=== PATIENT | female | born 1935 | race Caucasian/White ===

== ENCOUNTER 2018-04-24 13:06 | Outpatient (CLI) | payer MEDICARE ==
--- NOTE | 2018-04-24 15:16 | CT ---
CT LUMBAR SPINE WITHOUT CONTRAST: HISTORY: Low back pain. The patient had a stimulator placed 4 months ago. COMPARISON: 09/27/2015. TECHNIQUE: Lumbar spine CT is performed without contrast. Reformatted images are submitted for interpretation. FINDINGS: There are bilateral transpedicular screws at L4, L5, and S1. There is no evidence of perihardware inocencia cency. Lumbar spine vertebral height is maintained. There is no fracture. Dorsal column stimulator enters the central spinal canal at approximately the T12-L1 level. Distal tips are not included on this exam. There is mild rightward curvature of the lumbar spine. Vacuum disk phenomenon at L1-L2, L2-L3, L3-L4 , and L4-L5. There is 4.4 mm of retrolisthesis of L1 upon L2, 3.8 mm of retrolisthesis of L2 upon L3, 5.2 mm of an terolisthesis of L4 upon L5, 11 mm anterolisthesis of L5 upon S1. Laminectomy defect at L3-L4, L4-L5, and the L5-S1 disk space. There appear to be bilateral pars defe cts at L5. Symmetric attenuation of the psoas muscles. Exophytic hypodensity emanating from the left renal lili ex measuring 7 cm compatible with a cyst. Other visualized solid organs are unremarkable. Limited evaluation of the contents of the central spinal canal and neural foramen due to technique. T10-T11, T11-T12, and T12-L1: No significant central canal stenosis of foraminal narrowing. L1-L2: Broad-based disk bulge and ligamentum flavum thickening result in mild central canal stenosis . Moderate to severe right and moderate left neural foraminal narrowing. L2-L3: Broad-based disk bulge, ligamentum flavum thickening, and facet hypertrophy result in moderat e central canal stenosis. Right neural foramen is moderately narrowed. There is severe left foramin al narrowing. L3-L4: Broad-based disk bulge is present. Limited evaluation of the central spinal canal due to adelfo m-attenuation artifact. There appears to be narrowing of the left subarticular zone secondary to dis k material as well as osteophyte formation from the end plate. There is presumed obscuration of the traversing left L4 nerve root. Overall, there is mild central canal stenosis. Moderate to severe bi lateral foraminal narrowing. L4-L5: Posterior laminectomy defect. No high-grade central canal stenosis. Moderate bilateral fora marry narrowing. L5-S1: Posterior laminectomy defect. No high-grade central canal stenosis. Severe bilateral forami nal narrowing. IMPRESSION: 1. Lumbar fusion changes as above. 2. Varying degrees of central canal stenosis and foraminal narrowing as detailed above. 3. Spondylolysis of L5. There is associated grade I anterolisthesis of L5 upon S1. POS: [facility]
== END 2018-04-24 13:07 | disposition home or self-care (01) ==
LOC: SCSCT 13:06
PROVIDERS: ATTEND Anesthesiology Pain Medicine
DX: M96.1 Postlaminectomy syndrome, not elsewhere classified (principal); M48.061 Spinal stenosis, lumbar region without neurogenic claudication; M48.07 Spinal stenosis, lumbosacral region; M47.816 Spondylosis without myelopathy or radiculopathy, lumbar region; M43.16 Spondylolisthesis, lumbar region; Z98.1 Arthrodesis status
CPT/HCPCS: 72131

== ENCOUNTER 2018-09-01 11:36 | Day surgery (SDC) | payer MEDICARE ==
[2018-08-31 13:38] VITALS: BMI 23.3
[2018-09-01] MEDS ORDERED: Fentanyl 100 MCG/2 ML VIAL ONE ×2 (12:42→14:19)
[2018-09-01] MEDS ORDERED: Ondansetron PF 4 MG/2 ML Vial ONE (14:06)
[2018-09-01] MEDS ORDERED: PROPOFOL 200 MG/20 ML VIAL ONE (14:06)
[2018-09-01] MEDS ORDERED: Lidocaine 1% (PF) 30 ML VIAL ONE (14:45)
[2018-09-01] MEDS ORDERED: Bupivacaine/Epinephrine 0.25% 30 ML VIAL ONE (14:45)
--- NOTE | 2018-09-02 13:14 | OP ---
DATE OF PROCEDURE: 09/01/2018 PREOPERATIVE DIAGNOSES: 1. Lumbar stenosis. 2. Chronic radiculopathy. 3. Chronic pain. 4. Failure of spinal cord stimulator. POSTOPERATIVE DIAGNOSES: 1. Lumbar stenosis. 2. Chronic radiculopathy. 3. Chronic pain. 4. Failure of spinal cord stimulator. PROCEDURES PERFORMED: 1. Removal of spinal cord stimulation electrode array on the right side. 2. Removal of spinal cord stimulation electrode array on the left side. 3. Removal of internal pulse generator. ANESTHESIA: TIVA. COMPLICATIONS: None. ESTIMATED BLOOD LOSS: Less than 10 mL. SUMMARY: Risks and benefits were discussed. Informed consent was obtained and the patient was taken to the OR, prepped and draped in standard fashion using ChloraPrep, let to dry. 1% lidocaine mixed with 0.25% Marcaine with epinephrine 50:50 was used for skin and subcutaneous anesthesia. The posterior incision was chosen first, incision and blunt dissection were made down, exposing the lead anchors easily. They were dissected out. Each lead suture anchor was identified, ligated, and removed. The right anchor was then removed along with the right lead. This was repeated for the left electrode array, each was sutures with two 2-0 silk sutures. They were ligated and removed and the left electrode array was removed. Attention was then turned to the IPG in the right buttock. Incision was made over blunt dissection to expose the internal pulse generator. It was easily removed from the pocket and the leads were removed from the tunnel completing the explant of both electrodes arrays, both lead anchors, retaining sutures, and the internal pulse generator. All counts were correct x2. Closure was accomplished at both incisions in layers with interrupted 2-0 Vicryl and the skin was closed with a running subcuticular 4-0 Rapide at each incision. Dermabond was used to seal the skin. Dermabond was let dry, 4 x 4 dressings were placed along with Medipore tape. No complications. Tolerated the procedure well. Job ID: [id number] [facility]
== END 2018-09-01 16:35 | disposition home or self-care (01) ==
LOC: SDC 11:36
PROVIDERS: ATTEND Specialist
PROC: 00PU3MZ Removal of Neurostimulator Lead from Spinal Canal, Percutaneous Approach (ICD-10-PCS; principal; 2018-09-01)
PROC: 0JPT0MZ Removal of Stimulator Generator from Trunk Subcutaneous Tissue and Fascia, Open Approach (ICD-10-PCS; 2018-09-01)
DX: T85.192A Other mechanical complication of implanted electronic neurostimulator of spinal cord electrode (lead), initial encounter (principal); M48.061 Spinal stenosis, lumbar region without neurogenic claudication; G89.29 Other chronic pain; M54.16 Radiculopathy, lumbar region; I10 Essential (primary) hypertension; Z88.2 Allergy status to sulfonamides; Z88.5 Allergy status to narcotic agent; Z88.8 Allergy status to other drugs, medicaments and biological substances; Z79.899 Other long term (current) drug therapy
CPT/HCPCS: 76000; J2001; J2405; J2704; J3010

== ENCOUNTER 2018-11-10 14:08 | Outpatient (CLI) | payer MEDICARE ==
--- NOTE | 2018-11-10 14:47 | RAD ---
MRI clearance study: Abdomen one view Chest 1 view: DATE: 11/10/2018 HISTORY: 83-year-old male scheduled for MRI of lumbar spine with history of spinal cord stimulator removal. Th is is for MRI clearance to rule out the possibility of retained leads or lead fragments. FINDINGS: There is no generator or electrical leads for spinal cord stimulator. Severe joint space narrowing of the superior aspect of right hip with severe sclerosis and large subchondral cyst formation. Bilateral pedicle screws and laminectomy defect at lower lumbar spine and lumbosacral junction. Promi nent scoliosis of lumbar spine with associated severe degenerative disc disease. Chronic left lateral subluxations of L1 on L2 and L2 on L3. Visualized lung caldwell are clear. No cardiomegaly or p ulmonary edema. No pneumothorax. IMPRESSION: 1. The patient is cleared for MRI. 2. Severe lumbar spondylosis, with scoliosis, laminectomy, and posterior fusion hardware. 3. Extremely severe osteoarthrosis of the right hip, incompletely imaged.
--- NOTE | 2018-11-10 16:36 | MRI ---
MRI OF THE LUMBAR SPINE WITH AND WITHOUT CONTRAST: 11/10/18 HISTORY: Lumbar stenosis with neurogenic claudication. Previous lumbar surgery, x2. Multiple falls. Right leg and low back pain. COMPARISON: None. TECHNIQUE: MRI of the lumbar spine is performed with and without intravenous gadolinium administration. Multiseq uential, multiplanar imaging is performed. FINDINGS: There are bilateral transpedicular screws at L4, L5 and S1. Associated metallic susceptibility artifa ct. There is Ts1 marrow signal hypointensity with associated T2 and STIR hyperintensity on the superi or end plate of L4 likely due to degenerative change. 5 mm of retrolisthesis of L2 upon L3, 4 mm of r etrolisthesis of L3 upon L4, 7.8 mm of anterolisthesis of L5 upon S1. Appropriate signal intensity in the paraspinal muscles. Large T2 hyperintense lesion in the left kidney is presumed to be a cyst. T11-T12: Left and right paracentral disc bulges, ligamentum flavum thickening and facet hypertrophy r esult in mild central canal stenosis. Neural foramina are patent bilaterally. T12-L1: Small left and right paracentral disc bulges, along with ligamentum flavum thickening and fac et hypertrophy resulting in mild central canal stenosis. Mild bilateral foraminal narrowing. L1-L2: Severe loss of disc space height. Generalized disc bulge, ligamentum flavum thickening and fac et hypertrophy result in mild central canal stenosis. Narrowing of the right subarticular zone with m ass effect and obscuration of the traversing right L2 nerve root. Moderate right and left neural fora marry narrowing. L2-L3: Desiccation with severe loss of disc space height. There is a left subarticular disc osteophyt e complex. There is a left laminectomy defect. Mild enhancing scar tissue at the operative site. Over all, there is mild central canal stenosis. There is moderate right and severe left neural foraminal n arrowing. L3-L4: Desiccation with severe loss of disc space height. There appears to be narrowing of the left s ubarticular zone secondary to disc material. At least mild central canal stenosis. Moderate right and moderate to severe left foraminal narrowing. L4-L5: Moderate loss of disc space height. Left laminectomy defect is noted. No evidence of high grad e central canal stenosis. Moderate to severe right and moderate left foraminal narrowing. L5-S1: Posterior laminectomy defect. There is a T2 hyperintense lesion with peripheral enhancement m easuring 1.7 cm craniocaudal x 3.1 cm mediolateral x 1 cm anterior posterior. Postoperative fluid col lection is favored. An infected fluid collection cannot be excluded. Postcontrast images do not demonstrate any abnormal enhancement within the thecal sac including the c auda equina and conus medullaris. IMPRESSION: 1. Extensive lumbar fusion as described above. There is a peripherally enhancing cystic lesion a t the operative site, which is presumed to be due to postoperative change versus infected fluid colle ction. Correlate clinically. 2. Varying degrees of central canal stenosis and neural foraminal narrowing as detailed above. Code T POS: OFF
== END 2018-11-10 14:09 | disposition home or self-care (01) ==
LOC: TBSIIMAG 14:08
PROVIDERS: ATTEND Anesthesiology Pain Medicine
DX: M48.062 Spinal stenosis, lumbar region with neurogenic claudication (principal); M47.816 Spondylosis without myelopathy or radiculopathy, lumbar region; M16.11 Unilateral primary osteoarthritis, right hip; Z98.1 Arthrodesis status
CPT/HCPCS: 72158; 74018; 82565

== ENCOUNTER 2019-01-22 13:46 | Outpatient (CLI) | payer MEDICARE ==
--- NOTE | 2019-01-22 15:44 | CT ---
CT ABDOMEN AND PELVIS WITH IV CONTRAST: 01/22/19 Oral contrast was also given. Multiplanar reconstruction. INDICATION: Abdominal pain. There are no comparison CT abdomen and pelvis exams. Comparison is made to a prior CT chest from 2014 . Images through the lung bases reveal interstitial thickening and numerous small pulmonary nodules. A larger nodule in the left lung base measuring up to 8 to 9 mm is again seen. These nodular opacities appear stable. Liver, spleen, and pancreas appear unremarkable. The gallbladder is mildly distended. No pericholecystic edema seen. Gallstones may not be apparent on CT. The adrenal glands are unremarkable. There is a large left renal cyst which was imaged on the prior chest CT and does appear stable. This cyst measures up to 7 cm. There is another complex low density probable cystic lesion which is exophytic from the posterior mid left kidney measuring 1.2 cm. This lesion exhibits peripheral calcification and possibly peripheral enhancement. This lesion was also imaged on the prior exam and appears stable. Tiny low densities subcentimeter cystic lesions in the right kidney appear stable. No hydronephrosis or urinary calculus. Urinary bladder mildly distended and unremarkable. Aorta normal caliber. Small bowel loops appear normal. Appendix is not identified. Stool throughout the colon. Degenerative and postoperative changes in the lumbar spine. IMPRESSION: 1. No acute process. Renal cystic lesions appear stable. A complex exophytic lesion from the pos terior mid left kidney appears stable from the prior exam of 2014. 2. Numerous nodules in the lung bases with interstitial thickening appears stable. POS: [facility]
== END 2019-01-22 13:47 | disposition home or self-care (01) ==
LOC: SCSCT 13:46
PROVIDERS: ATTEND Internal Medicine
DX: R10.84 Generalized abdominal pain (principal); Q61.9 Cystic kidney disease, unspecified
CPT/HCPCS: 74177; 82565

== ENCOUNTER 2019-05-16 17:52 | Observation (INO) | payer MEDICARE ==
[~2019-05-16 17:52] MED LIST: Iopamidol-370 76% 500 ML 1 ML ONE
--- NOTE | 2019-05-16 21:05 | CT ---
CT ANGIO CHEST PERFORMED WITH IV CONTRAST ENHANCEMENT WITH 3D RECONSTRUCTIONS: Date: 05/16/2019 HISTORY: Chest pain. Elevated D-Dimer. Shortness of breath. COMPARISON: CT abdomen and pelvis performed 01/22/19. FINDINGS: There are numerous small bilateral pulmonary nodules noted. The larger nodules are within the left lo wer lobe where nodules in the 8-9 mm range are seen. In comparing to the previous CT of the abdomen, these lower lobe pulmonary nodules appear stable. On that exam, it is described as the pulmonary nodu les being stable as compared to a 2015 exam, which I do not have for comparison. There is no significant mediastinal, hilar, or axillary lymphadenopathy. The thoracic aorta is normal in caliber. There is good pulmonary artery opacification and no CT evide nce for pulmonary embolus. Visualized liver parenchyma shows no findings. A left renal cyst is partially visualized. IMPRESSION: 1. No CT evidence of pulmonary embolus. 2. Numerous pulmonary nodules. The etiology of these are unclear. These are not calcified. Metastati c disease is not excluded. The nodules in the lung bases are stable as compared to the 01/22/19 study . POS: [facility]
[2019-05-16 22:41] LABS: Troponin I 0.013 ng/mL (< 0.028)
[2019-05-16 22:48] VITALS: BMI 21.7
[2019-05-17] MEDS ORDERED: ALPRAZolam 1 MG TAB PO SCH ×3 (01:00→21:00)
[2019-05-17] MEDS ORDERED: Metoprolol Tartrate 50 MG TAB PO SCH ×2 (01:00→09:00)
[2019-05-17 01:34] LABS: Troponin I Less than 0.010 ng/mL (< 0.028)
[2019-05-17] MEDS: HYDROcodone/Acetaminophen 7.5/325 mg Tablet PO PRN ×2 (09:04→17:44)
[2019-05-17] MEDS: Metoprolol Tartrate 50 MG TAB PO SCH ×2 (09:04→20:26)
[2019-05-17] MEDS: Promethazine 25 MG TAB PO PRN (15:42)
--- NOTE | 2019-05-17 22:09 | HP ---
CHIEF COMPLAINT: Abdominal pain. HISTORY OF PRESENT ILLNESS: Patient is an 83-year-old female who stated that when her dog jumped to her lap, she started having this burning sensation starting from her abdomen going up to her neck and she was little nauseated, so she came into the hospital for further evaluation. The patient states that whenever her dog jumps in her lap, these symptoms occur and she thought that she is "allergic to the dog." Patient's dog weighs about 4 pounds. Patient recently had an EGD last month, which did not show any acute abnormalities. The pathology specimen only indicated patient has mild active esophagitis with some reflux. No Parker's was noted. Patient states that she has had lower abdominal pain. She has had colonoscopies and continues to have the abdominal pain without any active diagnosis. PAST MEDICAL HISTORY: As of the following: She has a history of hyperlipidemia, hypercholesterolemia, hypertension, hypothyroidism, and chronic pain. SURGICAL HISTORY: She has had a hysterectomy and right shoulder surgery. PSYCHIATRIC HISTORY: Includes anxiety. SOCIAL HISTORY: She denies any alcohol use, drug use, or smoking history. She is a full code. Lives with her family. ALLERGIES: SHE IS ALLERGIC TO CIPROFLOXACIN, NAUSEA; CODEINE, NAUSEA; MORPHINE, RASH; SULFA, NAUSEA; AND ZOLPIDEM. MEDICATIONS: She is on: 1. Celexa 20 mg daily. 2. Levothyroxine 112 mcg daily. 3. Alprazolam 1 mg p.o. daily. 4. Metoprolol 50 mg b.i.d. PHYSICAL EXAMINATION: VITAL SIGNS: Temperature of 98.8, , 16, pulse is 63, and blood pressure is 120/60. GENERAL: She is awake, alert, and oriented x3. Does not appear in distress. HEENT: Normocephalic and atraumatic. No lymphadenopathy noted. Pupils equal and reactive to light. CV: S1 and S2 present. No murmurs, rubs, or gallops. LUNGS: Clear to auscultation. No rhonchi or wheezes noted. ABDOMEN: Soft. Bowel sounds present x2. Mild pain upon palpation to bilateral lower abdominal area. EXTREMITIES: No edema noted. Pedal pulses are present x2. NEUROVASCULAR: There are no focal deficits noted. SKIN: No cuts, lesions, or bruises noted. LABORATORY: Her troponin x3 were negative. EKG, no acute changes. WBCs of 4.5, hemoglobin of 11.1, hematocrit of 35.1, and platelets of 184. Her D-dimer was elevated at 1.1. Her BNP was 240. Sodium of 135, potassium of 4.1, BUN of 20, creatinine 0.86, and AST of . ASSESSMENT/PLAN: Patient is a very pleasant 83-year-old female who presents to the hospital with complaints of atypical chest pain. 1. Atypical chest pain. Patient did have a CTA which indicated multiple pulmonary nodules. She is aware of this. She states that she is supposed to follow up with a CAT scan as an outpatient. No embolism was noted. She has no cardiac history. Her troponins x3 were negative. We will continue her home medications. We will also go ahead and order a stress test given her risk factors and her age. If the stress test is negative, I will discharge her. I will also get a right upper quadrant ultrasound to rule out any other etiology, however, she was seen in the hospital in January of 2019, she did have a CT of abdomen and pelvis, which indicated just numerous nodules to the lungs and also a renal cyst that was stable and a complex exophytic lesion from the posterior mid left kidney, which appears to be stable from exam of 2014. Patient is aware of this. 2. History of anxiety. We will continue her home medications. 3. Hypertension. We will continue her home medications. 4. Deep venous thrombosis prophylaxis. We will put the patient on SCDs. Job ID: [id number]
[2019-05-18] MEDS: Promethazine 25 MG TAB PO PRN (05:17)
[2019-05-18] MEDS ORDERED: Levothyroxine Sodium 50 MCG TAB PO SCH (06:00)
--- NOTE | 2019-05-18 07:41 | ULT ---
Sonogram right upper quadrant HISTORY: Right upper quadrant pain. FINDINGS: Gallbladder shows no focal abnormalities. Common duct is 0.3 cm. Liver within normal limits . No free fluid. Incidental note of a small cyst of the right kidney. IMPRESSION: No evidence of gallstones or acute biliary obstruction.
[2019-05-18] MEDS: HYDROcodone/Acetaminophen 7.5/325 mg Tablet PO PRN (08:13)
[2019-05-18] MEDS: Metoprolol Tartrate 50 MG TAB PO SCH (08:14)
[2019-05-18 08:15] VITALS: TEMP 97.8
--- NOTE | 2019-05-18 09:07 | NM ---
NM Card Spec Sgl sty st or rst History: Chest pain Comparison: None. Findings: Rest only images were obtained. The patient refused stress component of the exam. Only nonattenuation corrected rest images were obtained. Impression: Nondiagnostic examination as patient refused the stress component of the exam and only no nattenuation corrected images were obtained.
[2019-05-18 09:44] VITALS: BP 158/67
--- NOTE | 2019-05-20 08:31 | DIS ---
DATE OF ADMISSION: 05/16/2019 DATE OF DISCHARGE: 05/18/2019 DISCHARGE DIAGNOSES: 1. Atypical chest pain. 2. Anxiety. 3. Hypertension. 4. Pulmonary nodules. HOSPITAL COURSE: The patient is a very pleasant 83-year-old female who initially presented to the hospital for having a burning like sensation starting from her abdomen going up to her neck area. She stated that whenever her dog jumps on her lap, she gets that sensation. The patient recently had an EGD last month and did not show any acute abnormalities. The patient at this time did undergo a stress test, however, she only did the first part of the stress test and she refused to do the second part of the stress test. The patient did have a CTA to rule out a PE. The PE was ruled out. She did have numerous pulmonary nodules, which she is aware of, which she is supposed to get further testing for this. I did talk extensively with the patient. Also got a right upper quadrant ultrasound, which did not indicate any gallstones or any biliary obstruction. The patient stated that she felt better. She has been through a lot of issues especially with her family and has been having a lot of anxiety. I will discharge the patient home. She will follow up with her primary and also she is aware of her pulmonary nodules and she is going to get a workup as an outpatient. HOME MEDICATIONS: 1. Levothyroxine 50 mcg daily. 2. Metoprolol 1 p.o. daily. 3. Pantoprazole 40 mg twice a day. 4. Alprazolam 2 mg daily. 5. Duloxetine 20 mg p.o. daily. PHYSICAL EXAMINATION: VITAL SIGNS: Temperature 97.8, pulse 63, respirations 15, 97% on room air, blood pressure 158/67. GENERAL: She is awake, alert, and oriented x3. Does not appear in any distress. CV: S1 and S2 present. No murmurs, rubs, or gallops. ABDOMEN: Soft and nontender. Bowel sounds are present x2. DISCHARGE INSTRUCTIONS: Again, she will be discharged home. She will follow up with her primary. Job ID: [id number]
== END 2019-05-18 14:36 | disposition home or self-care (01) ==
LOC: ERS 17:52 → 2SW 20:22
PROVIDERS: ADMIT Family Medicine; ATTEND Family Medicine
DX: R07.89 Other chest pain (principal); I10 Essential (primary) hypertension; F41.9 Anxiety disorder, unspecified; R91.1 Solitary pulmonary nodule; E03.9 Hypothyroidism, unspecified; E78.00 Pure hypercholesterolemia, unspecified; E78.5 Hyperlipidemia, unspecified; Z79.899 Other long term (current) drug therapy; Z88.1 Allergy status to other antibiotic agents; Z88.5 Allergy status to narcotic agent; Z88.2 Allergy status to sulfonamides; Z88.8 Allergy status to other drugs, medicaments and biological substances
CPT/HCPCS: 71275; 76705; 78451; 84484 ×2; 93005; 99285; A9500; G0378 ×4; 36415; Q0169; Q9967

== ENCOUNTER 2019-07-31 00:35 | Emergency (ER) | payer MEDICARE ==
[2019-07-31] MEDS ORDERED: Ondansetron PF 4 MG/2 ML Vial ONE (01:01)
[2019-07-31] MEDS ORDERED: HYDROcodone/Acetaminophen 7.5/325 mg Tablet ONE (01:47)
--- NOTE | 2019-07-31 07:55 | CT ---
PRELIMINARY REPORT/[facility]/EMERGENCY AFTER HOURS PROCEDURE: EXAM: CT Head Without Intravenous Contrast. CLINICAL HISTORY: ER 2... 83F brought in via EMS c/o sacral & occipital pain s/p mechanical fall at a ssisted living facility. TECHNIQUE: Axial computed tomography images of the head/brain without intravenous contrast. COMPARISON: CT - CT CERVICAL SPINE WO CON - 07/31/2019 01:18 AM CDT FINDINGS: BRAIN: Mild cerebral volume loss and ex vacuo dilatation of the ventricles. Few scattered periventric ular and subcortical white matter hypodensities. VENTRICLES: No hydrocephalus. ORBITS: The orbits are unremarkable. SINUSES AND MASTOIDS: The paranasal sinuses and mastoid air cells are clear. SOFT TISSUES: No significant facial or scalp soft tissue swelling evident. No radiopaque foreign body is seen. BONES: No acute skull fracture. IMPRESSION: 1. No acute intracranial abnormality. 2. Few scattered periventricular and subcortical white matter hypodensities. These are nonspecific b ut can be seen with chronic white matter microvascular ischemic changes. ELECTRONICALLY SIGNED BY: Bobby Martinez DO Jul 31, 2019 1:30:30 AM CDT FINAL REPORT HEAD CT WITHOUT CONTRAST: HISTORY: Mechanical fall. Pain. COMPARISON: 07/14/2016. FINDINGS: Hemorrhage: No intraparenchymal hemorrhage or extra-axial hematoma. Brain parenchyma: Cortical lyles-white matter differentiation is preserved. No mass effect or midline shift. Basilar cisterns are patent. Ventricular system: Ventricles and sulci are patent and symmetric. Calvarium: Intact. Sinuses and mastoid air cells: Adequate aeration. IMPRESSION: 1. This report is in agreement with the preliminary report by [facility]. 2. No intracranial posttraumatic sequelae. Transcribed Date/Time: 07/31/2019 8:08 AM
--- NOTE | 2019-07-31 07:58 | CT ---
PRELIMINARY REPORT/[facility]/EMERGENCY AFTER HOURS PROCEDURE: EXAM: CT Cervical Spine Without Intravenous Contrast. CLINICAL HISTORY: ER 2... 83F brought in via EMS c/o sacral & occipital pain s/p mechanical fall at a ssisted living facility. TECHNIQUE: Axial computed tomography images of the cervical spine without intravenous contrast. Sagit monika and coronal reformations performed. COMPARISON: CT - CT BRAIN WO CON - 07/31/2019 01:18 AM CDT FINDINGS: BONES: No acute fracture or focal osseous lesion. Bony alignment is anatomic. DISCS / DEGENERATIVE CHANGES: Moderate to severe multilevel cervical spondylosis. SOFT TISSUES: Scattered nodules in the lung apices, largest measuring 4 mm on the right lung apex. MISCELLANEOUS: Mild smooth interlobular septal thickening and centrilobular groundglass. IMPRESSION: 1. No acute abnormality. 2. Moderate to severe multilevel cervical spondylosis. 3. Scattered nodules in the lung apices, largest measuring 4 mm on the right lung apex. If patient i s at high risk for pulmonary malignancy, consider follow-up CT chest in one year. 4. Mild smooth interlobular septal thickening and centrilobular groundglass. This can be seen with m ild pulmonary edema. ELECTRONICALLY SIGNED BY: Bobby Martinez DO Jul 31, 2019 1:33:26 AM CDT FINAL REPORT CT CERVICAL SPINE WITHOUT CONTRAST: HISTORY: Trauma. Pain. COMPARISON: None FINDINGS: No craniocervical dissociation. Appropriate alignment of the lateral masses of C1 and C2. Intact odon toid process. Appropriate alignment of the facets. Slight reversal cervical lordosis centered at the C5-C6 level. Soft tissue neck structures: No mass, lymphadenopathy or hematoma. No prevertebral soft tissue swelli ng. Upper mediastinum and lung apices: Groundglass opacities with septal thickening. Well-circumscribed s olid nodule in the right lung apex measuring 0.4 cm. Central spinal canal: Severe degenerative disc disease at C5-C6 and C6-C7. There are varying degrees of central canal stenosis and neural foraminal narrowing on the basis of degenerative change. Vertebral bodies: Cervical spine vertebral body height is maintained. No fracture. IMPRESSION: 1. This report is in agreement with the initial report by [facility]. No cervical spine fractur e. 2. Solid nodule in the right lung apex. Code lung nodule Transcribed Date/Time: 07/31/2019 8:04 AM
--- NOTE | 2019-07-31 08:10 | RAD ---
THREE VIEWS SACRUM AND COCCYX: HISTORY: Pain. Fall. FINDINGS: Uncomplicated bilateral transpedicular screws at L4, L5 and S1. No perihardware lucency. There appear s to be grade 1 anterolisthesis of L5 upon S1. Visualized sacral alar preserved. Visualized bony pelvis appears to be intact. There is severe degenerative change in the right hip joint space with lo ss of joint space height, sclerosis and subchondral cyst formation. IMPRESSION: 1. Uncomplicated fusion changes in the distal lumbar spine and lumbosacral junction. 2. No evidence of a lumbar spine fracture. 3. Severe degenerative changes in the right hip. Transcribed Date/Time: 07/31/2019 8:13 AM
== END 2019-07-31 02:29 | disposition home or self-care (01) ==
LOC: ERS 00:35
DX: S00.03XA Contusion of scalp, initial encounter (principal); S30.0XXA Contusion of lower back and pelvis, initial encounter; R11.0 Nausea; E78.5 Hyperlipidemia, unspecified; E78.00 Pure hypercholesterolemia, unspecified; I10 Essential (primary) hypertension; E03.9 Hypothyroidism, unspecified; F41.9 Anxiety disorder, unspecified; Z79.899 Other long term (current) drug therapy; W01.10XA Fall on same level from slipping, tripping and stumbling with subsequent striking against unspecified object, initial encounter; Y92.099 Unspecified place in other non-institutional residence as the place of occurrence of the external cause
CPT/HCPCS: 70450; 72125; 72220; 96374; J2405

== ENCOUNTER 2019-10-01 07:19 | Outpatient (CLI) | payer MEDICARE, OTHER ==
[2019-10-01 12:58] LABS: #Basophils 0.1 thou/uL (0.0-0.2); #Eosinphils 0.2 thou/uL (0.0-0.7); #Lymphocytes 1.4 thou/uL (1.20-3.40); #Monocytes 0.5 thou/uL (0.11-0.59); #Neutrophils 2.6 thou/uL (1.40-6.50); %Basophils 1.1 % (0.0-1.0); %Eosinophils 4.8 % (0.0-10.0); %Lymphocytes 28.5 % (21.0-51.0); %Monocytes 11.1 % (0.0-10.0); %Neutrophils 54.5 % (42.0-75.0); Hemoglobin 11.4 g/dL (12.0-16.0); Mean Corpuscular HGB CONC 32.3 g/dL (32.0-36.0); Mean Corpuscular Hemoglobin 30.7 pg (27.0-31.0); Mean Platelet Volume 7.7 fL (7.4-10.4); Platelet Count 187 thou/uL (130-400); RBC Distribution Width 12.9 % (11.5-14.5); Red Blood Cell (RBC) Count 3.72 mill/uL (4.20-5.40); White Blood Cell (WBC) Count 4.8 thou/uL (4.8-10.8)
[2019-10-01 13:22] LABS: ALT (SGPT) 11 U/L (8-55); AST (SGOT) 32 U/L (5-34); Albumin 3.7 g/dL (3.4-4.8); Alkaline Phosphatase 61 U/L (40-110); Anion Gap 10 mmol/L (10-20); BUN (Urea Nitrogen) 20 mg/dL (9.8-20.1); Bilirubin, Total 0.4 mg/dL (0.2-1.2); Calc. Creatinine Clearance 0 mL/min (70-130); Calcium 9.6 mg/dL (7.8-10.44); Carbon Dioxide 27 mmol/L (23-31); Chloride 102 mmol/L (98-107); Estimated GFR-MDRD 66; Globulin 3.7 g/dL (2.4-3.5); Glucose 80 mg/dL (83-110); Potassium 3.8 mmol/L (3.5-5.1); Protein, Total 7.4 g/dL (6.0-8.3); Sodium 135 mmol/L (136-145)
--- NOTE | 2019-10-08 23:26 | EKG ---
Test Reason : Blood Pressure : / mmHG Vent. Rate : 054 BPM Atrial Rate : 054 BPM P-R Int : 174 ms QRS Dur : 092 ms QT Int : 464 ms P-R-T Axes : 008 -44 019 degrees QTc Int : 440 ms Sinus bradycardia Left axis deviation Incomplete right bundle branch block Abnormal ECG When compared with ECG of 16-MAY-2019 20:18, No significant change was found Confirmed by Alana PEMBERTON ([id number]) on 10/08/2019 11:25:50 PM Referred By: WILMA Confirmed By:Alana PEMBERTON
== END 2019-10-01 07:20 | disposition home or self-care (01) ==
LOC: LABBT 07:19
PROVIDERS: ATTEND Surgery
DX: Z01.818 Encounter for other preprocedural examination (principal); K40.90 Unilateral inguinal hernia, without obstruction or gangrene, not specified as recurrent
CPT/HCPCS: 80053; 85025; 93005; 93010

== ENCOUNTER 2020-02-28 13:03 | Emergency (ER) | payer MEDICARE ==
[2020-02-28 14:25] LABS: #Basophils 0.1 thou/uL (0.0-0.2); #Eosinphils 0.1 thou/uL (0.0-0.7); #Lymphocytes 0.7 thou/uL (1.20-3.40); #Monocytes 0.6 thou/uL (0.11-0.59); #Neutrophils 3.5 thou/uL (1.40-6.50); %Eosinophils 2.6 % (0.0-10.0); %Lymphocytes 14.6 % (21.0-51.0); %Monocytes 12.3 % (0.0-10.0); %Neutrophils 69.4 % (42.0-75.0); Hemoglobin 11.2 g/dL (12.0-16.0); Mean Corpuscular HGB CONC 32.3 g/dL (32.0-36.0); Mean Corpuscular Hemoglobin 29.5 pg (27.0-31.0); Mean Corpuscular Volume 91.4 fL (78.0-98.0); Mean Platelet Volume 7.3 fL (7.4-10.4); Platelet Count 218 thou/uL (130-400); RBC Distribution Width 13.2 % (11.5-14.5)
--- NOTE | 2020-02-28 14:30 | RAD ---
EXAM: Single view of the chest HISTORY: Dizziness COMPARISON: None FINDINGS: Single view of the chest shows a normal sized cardiomediastinal silhouette. There are calc ified left hilar lymph nodes. Calcified granulomas project over the left chest. There is no evidence of consolidation or pleural effusion. Hardware is seen in the lumbar spine. Degenerative kinjal nges are seen in the thoracic spine. IMPRESSION: No evidence of acute cardiopulmonary disease
[2020-02-28 14:41] LABS: ALT (SGPT) 9 U/L (8-55); AST (SGOT) 21 U/L (5-34); Albumin 3.9 g/dL (3.4-4.8); Alkaline Phosphatase 77 U/L (40-110); Anion Gap 10 mmol/L (10-20); BUN (Urea Nitrogen) 18 mg/dL (9.8-20.1); Bilirubin, Total 0.4 mg/dL (0.2-1.2); CK (CPK) 274 U/L (29-168); Calc. Creatinine Clearance 0 mL/min (70-130); Calcium 10.1 mg/dL (7.8-10.44); Carbon Dioxide 28 mmol/L (23-31); Chloride 102 mmol/L (98-107); Estimated GFR-MDRD 61; Globulin 3.3 g/dL (2.4-3.5); Glucose 99 mg/dL (83-110); Potassium 4.4 mmol/L (3.5-5.1); Protein, Total 7.2 g/dL (6.0-8.3); Sodium 136 mmol/L (136-145)
--- NOTE | 2020-02-28 14:51 | CT ---
Exam: Head CT without contrast HISTORY: Confusion. Hypertension. COMPARISON: 07/31/2019 FINDINGS: Hemorrhage: No intraparenchymal hemorrhage or extra-axial hematoma. Brain parenchyma: Cortical lyles-white matter differentiation is preserved. No mass effect or midline shift. Basilar cisterns are patent. Ventricular system: Ventricles and sulci are patent and symmetric. Calvarium: Intact. 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 IMPRESSION: No acute intracranial process.
[2020-02-28 15:58] LABS: Bilirubin Negative (Negative); Blood, Urine Negative (Negative); Clarity Clear (Clear); Glucose, Urine (Dipstick) Normal (Negative); Ketone, Urine Negative (Negative); Leukocyte 500 Leu/uL (Negative); Nitrite Negative (Negative); Protein, Urine (Dipstick) Negative (Neg-Trace); RBC/HPF None Seen HPF (0-3); Specific Gravity, Urine 1.011 (1.002-1.036); Squamous Epithelial 0-3 HPF (0-3); Urobilinogen Normal mg/dL (Less than 2); pH, Urine 6.5 (5.0-9.0)
[2020-02-28 15:59] LABS: Bacteria/HPF Rare-Few HPF (None Seen)
== END 2020-02-28 16:25 ==
LOC: ERS 13:03
DX: R42 Dizziness and giddiness (principal); I10 Essential (primary) hypertension; E03.9 Hypothyroidism, unspecified; F41.9 Anxiety disorder, unspecified; E78.5 Hyperlipidemia, unspecified
CPT/HCPCS: 36415; 70450; 71045; 80053; 81003; 81015; 82550; 84484; 85025; 93005

== ENCOUNTER 2020-04-26 07:48 | Inpatient (IN) | payer MEDICARE ==
[2020-04-26 08:10] LABS: #Basophils 0.1 thou/uL (0.0-0.2); #Eosinphils 0.3 thou/uL (0.0-0.7); #Lymphocytes 1.2 thou/uL (1.20-3.40); #Monocytes 0.5 thou/uL (0.11-0.59); #Neutrophils 3.3 thou/uL (1.40-6.50); %Eosinophils 5.5 % (0.0-10.0); %Lymphocytes 22.5 % (21.0-51.0); %Monocytes 9.5 % (0.0-10.0); %Neutrophils 61.5 % (42.0-75.0); Hemoglobin 12.3 g/dL (12.0-16.0); Mean Corpuscular HGB CONC 33.8 g/dL (32.0-36.0); Mean Corpuscular Hemoglobin 31.3 pg (27.0-31.0); Mean Corpuscular Volume 92.5 fL (78.0-98.0); Mean Platelet Volume 7.2 fL (7.4-10.4); Platelet Count 208 thou/uL (130-400); RBC Distribution Width 12.4 % (11.5-14.5); Red Blood Cell (RBC) Count 3.92 mill/uL (4.20-5.40); White Blood Cell (WBC) Count 5.4 thou/uL (4.8-10.8)
--- NOTE | 2020-04-26 08:24 | RAD ---
CHEST 1 VIEW: Date: 04/26/2020 HISTORY: Feeling faint. COMPARISON: 02/28/2020. FINDINGS: Atherosclerosis and elongation of aorta. Normal cardiac silhouette. Pulmonary vessels and hilum are n ormal. Chronic changes without mass or consolidation. No pneumothorax or acute osseous abnormalities. IMPRESSION: Atherosclerosis. No acute cardiopulmonary process. POS: [facility]
[2020-04-26] MEDS ORDERED: Ondansetron PF 4 MG/2 ML Vial ONE (08:37)
[2020-04-26 08:43] LABS: ALT (SGPT) 11 U/L (8-55); AST (SGOT) 24 U/L (5-34); Albumin 3.6 g/dL (3.4-4.8); Alkaline Phosphatase 82 U/L (40-110); Anion Gap 13 mmol/L (10-20); BUN (Urea Nitrogen) 20 mg/dL (9.8-20.1); Bilirubin, Total 0.3 mg/dL (0.2-1.2); CK (CPK) 213 U/L (29-168); Calc. Creatinine Clearance 0 mL/min (70-130); Calcium 9.7 mg/dL (7.8-10.44); Carbon Dioxide 24 mmol/L (23-31); Chloride 104 mmol/L (98-107); Globulin 3.3 g/dL (2.4-3.5); Glucose 127 mg/dL (83-110); Lipase 33 U/L (8-78); Potassium 4.1 mmol/L (3.5-5.1); Protein, Total 6.9 g/dL (6.0-8.3); Sodium 137 mmol/L (136-145)
[2020-04-26 09:09] LABS: Bilirubin Negative (Negative); Blood, Urine Negative (Negative); Clarity Clear (Clear); Glucose, Urine (Dipstick) Normal (Negative); Ketone, Urine Negative (Negative); Leukocyte Negative Leu/uL (Negative); Nitrite Negative (Negative); Protein, Urine (Dipstick) Negative (Neg-Trace); Specific Gravity, Urine 1.014 (1.002-1.036); Urobilinogen Normal mg/dL (Less than 2)
[2020-04-26] MEDS ORDERED: Iopamidol 370 76% 100 ML VIAL ONE (09:09)
--- NOTE | 2020-04-26 09:47 | CT ---
CT ABDOMEN AND PELVIS WITH IV CONTRAST 04/26/2020 CLINICAL INFORMATION: Right-sided abdominal pain for several days. Episode of chest pain is well. COMPARISON: 09/10/2019 and 01/22/2019. Technique: Multiple contiguous axial CT images are obtained through the abdomen and pelvis with IV contrast. Cor onal reformatted images are provided. FINDINGS: Lower Chest: The heart is borderline enlarged. Calcified granulomata is present at each lung base. Th ere are multiple tiny subcentimeter pulmonary nodules in the right lower lobe. Approximately 7 mm noncalcified pulmonary nodule seen at the medial aspect left posterolateral costophrenic angle with a stable 8 mm noncalcified pulmonary nodule seen in the left lower lobe with a few adjacent smaller pulmonary nodules also seen. These pulmonary nodules were present on studies on 09/10/2019 and 2018 and also appear to be present on the study in 2014. Vessels: Vascular calcifications are seen in region of the mitral valve annulus and the level of the aortic valve. Vascular calcifications are seen in the aorta as well as involving the iliac arteries. Abdomen: Portal vein:Patent Gallbladder: Within normal limits for CT imaging. Liver: Few hepatic granulomata visualized. Spleen: within normal limits. Pancreas: within normal limits. Adrenals: within normal limits. Kidneys: Few subcentimeter too small to characterize hypodense lesions are again seen in the midporti on right kidney. Large left renal cyst occupying the majority of the superior pole left kidney is again seen measuring 7.5 cm in maximal dimensions. This previously measured 7 cm in maximal dimension s. Again noted is the exophytic low-density lesion measuring 1.2 cm and the posterior aspect midportion left kidney which again exhibits peripheral calcification. This complex lesion was also se en on a prior examination on 11/23/2014 and similar in size to that study. Bowel: Small amount retained fecal material seen throughout the colon. Loops of small bowel are javier l in caliber. Appendix: Not visualized, there are no secondary signs seen to suggest appendicitis. Peritoneum: No ascites or free air; no fluid collection. Mesentery and Retroperitoneum: No enlarged mesenteric or retroperitoneal lymph nodes. Abdominal Wall: There is mild stranding seen within the region of the right inguinal canal. This coul d be related to prior hernia repair. Pelvis: Reproductive Organs: Evidence of hysterectomy. Bladder: within normal limits. Bones: There is severe right hip osteoarthritis with flattening of the humeral head and large subchon dral cystic changes as well as subchondral sclerosis and severe joint space narrowing present. There is also prominent capsular distention involving the right hip. Postoperative changes lower lumbar spine are present. Degenerative change are also seen in the spine with right convex scoliosis lumbar spine. IMPRESSION: 1. No acute findings in the abdomen or pelvis. 2. Severe right hip osteoarthritis with joint effusion/prominent capsular distention right hip. 3. Interval enlargement of a large left renal cyst with overall stable complex peripherally calcified cystic lesion midportion left kidney. 4. Bibasilar pulmonary nodules which were seen on prior studies. 5. Additional findings as described above.
--- NOTE | 2020-04-26 11:33 | PDOC.HHP ---
Hospitalist HPI - History of Present Illness History of Present Illness: ADMISSION DATE: 04/26/2020 TIME OF ASSESSMENT: 1130 PRIMARY CARE PHYSICIAN: Servando CHIEF COMPLAINT: Almost passed out, chest pain HPI: Patient is a 84-year-old female with past medical history significant for hyperlipidemia, hypertension, hypothyroidism, chronic pain. She is currently living at [facility] and still able to perform all of her tasks independently. She states that yesterday she was overall not feeling well and felt really tired. She went to bed last night and was a little nauseated and shaky and felt that her heart was beating really fast. This morning she woke up at 5 AM and stated that she felt her heart rate was going fast again and she was diaphoretic. She states when she went to stand up she almost fainted and fell back onto her bed, no injuries reported. She was able to ambulate to the restroom and back to bed with her walker. Patient states that she took her blood pressure medication at that time to see if it would help her feel better. She did not check her blood pressure or pulse before taking the medication as she was told that her machine is probably inaccurate. Patient did have some in termittent chest pain yesterday also although none reported today. She describes it as midsternal pressure that resolved on its own. After some time this morning she did feel a little better but was still overall feeling weak and faint so she called EMS to bring her to the hospital. Patient has had multiple stressors including family issues and has had 2 friends recently pass away from [facility]. She states she is normally a very social person but the pandemic has restricted her. She does suffer from chronic pain from her right hip that radiates across her stomach and even into her vaginal area. She is scheduled for surgery June 06. ED COURSE: Vital Signs: Blood pressure 181/82, pulse 82, respiratory rate 16, temp 98.2, 90% room air Today in the ER they completed a UA, CT of the abdomen and pelvis with IV contrast, chest x-ray, EKG, lab work. She was administered Zofran 4 mg IV. PAST MEDICAL HISTORY: Hyperlipidemia, hypertension, hypothyroid, chronic pain, anxiety PAST SURGICAL HISTORY: Back surgery x3, hysterectomy, right shoulder surgery SOCIAL HISTORY: Patient lives independently at [facility]. She uses a walker to ambulate. She denies any alcohol, drug, tobacco use. FAMILY HISTORY: Mother had rheumatic fever as a child and passed from an NV at age 46. Strong family history of strokes. ALLERGIES: Ambien, Cipro, codeine, morphine, sulfa CURRENT MEDICATIONS: Metoprolol 50 mg 2 times a day Mason Thyroid 120 mg once a day Simvastatin 10 mg once a day Xanax 2 mg once a day at bedtime Hospitalist ROS - Review of Systems Constitutional: reports: weakness Cardiovascular: reports: chest pain, palpitations, light headedness Gastrointestinal: reports: abdominal pain All other systems reviewed; all pertinent +/- noted in HPI/Subj - Exam General Appearance: NAD, awake alert Eye: PERRL ENT: normocephalic atraumatic Neck: supple Heart: RRR, no murmur, no gallops, no rubs, normal peripheral pulses Respiratory: CTAB, no wheezes, no rales, no ronchi, normal chest expansion Gastrointestinal: soft, non-distended, normal bowel sounds, tender to palpation Extremities: no edema Skin: no rashes Neurological: no focal deficits Psychiatric: A&O x 3 Psychiatric - other findings: Tearful at times during interview Hospitalist Results - Labs Result Diagrams: 04/26/20 07:59 04/26/20 07:59 Lab results: WBC 5.4 thou/uL (4.8-10.8) 04/26/20 07:59 Hgb 12.3 g/dL (12.0-16.0) 04/26/20 07:59 Hct 36.3 % (36.0-47.0) 04/26/20 07:59 MCV 92.5 fL (78.0-98.0) 04/26/20 07:59 Plt Count 208 thou/uL (130-400) 04/26/20 07:59 Neutrophils % 61.5 % (42.0-75.0) 04/26/20 07:59 Sodium 137 mmol/L (136-145) 04/26/20 07:59 Potassium 4.1 mmol/L (3.5-5.1) 04/26/20 07:59 Chloride 104 mmol/L (98-107) 04/26/20 07:59 Carbon Dioxide 24 mmol/L (23-31) 04/26/20 07:59 BUN 20 mg/dL (9.8-20.1) 04/26/20 07:59 Creatinine 0.76 mg/dL (0.6-1.1) 04/26/20 07:59 Glucose 127 mg/dL (83-110) H 04/26/20 07:59 Calcium 9.7 mg/dL (7.8-10.44) 04/26/20 07:59 Total Bilirubin 0.3 mg/dL (0.2-1.2) 04/26/20 07:59 AST 24 U/L (5-34) 04/26/20 07:59 ALT 11 U/L (8-55) 04/26/20 07:59 Alkaline Phosphatase 82 U/L (40-110) 04/26/20 07:59 Creatine Kinase 213 U/L (29-168) H 04/26/20 07:59 Troponin I Less than 0.010 ng/mL (< 0.028) 04/26/20 07:59 Serum Total Protein 6.9 g/dL (6.0-8.3) 04/26/20 07:59 Albumin 3.6 g/dL (3.4-4.8) 04/26/20 07:59 Lipase 33 U/L (8-78) 04/26/20 07:59 Urine Ketones Negative mg/dL (Negative) 04/26/20 08:49 Urine Blood Negative (Negative) 04/26/20 08:49 Urine Nitrite Negative (Negative) 04/26/20 08:49 Ur Leukocyte Esterase Negative Tamar/uL (Negative) 04/26/20 08:49 - EKG Interpretation EKG: Sinus rhythm 98 bpm - Radiology Interpretation CT scan - abdomen Status: image reviewed by me, report reviewed by me Additional Comment: COMPARISON: 09/10/2019 and 01/22/2019. Technique: Multiple contiguous axial CT images are obtained through the abdomen and pelvis with IV contrast. Coronal reformatted images are provided. FINDINGS: Lower Chest: The heart is borderline enlarged. Calcified granulomata is present at each lung base. There are multiple tiny subcentimeter pulmonary nodules in the right lower lobe. Approximately 7 mm noncalcified pulmonary nodule seen at the medial aspect left posterolateral costophrenic angle with a stable 8 mm noncalcified pulmonary nodule seen in the left lower lobe with a few adjacent smaller pulmonary nodules also seen. These pulmonary nodules were present on studies on 09/10/2019 and 2019 and also appear to be present on the study in 2014. Vessels: Vascular calcifications are seen in region of the mitral valve annulus and the level of the aortic valve. Vascular calcifications are seen in the aorta as well as involving the iliac arteries. Abdomen: Portal vein:Patent Gallbladder: Within normal limits for CT imaging. Liver: Few hepatic granulomata visualized. Spleen: within normal limits. Pancreas: within normal limits. Adrenals: within normal limits. Kidneys: Few subcentimeter too small to characterize hypodense lesions are again seen in the midportion right kidney. Large left renal cyst occupying the majority of the superior pole left kidney is again seen measuring 7.5 cm in maximal dimensions. This previously measured 7 cm in maximal dimensions. Again noted is the exophytic low-density lesion measuring 1.2 cm and the posterior aspect midportion left kidney which again exhibits peripheral calcification. This complex lesion was also seen on a prior examination on 11/23/2014 and similar in size to that study. Bowel: Small amount retained fecal material seen throughout the colon. Loops of small bowel are normal in caliber. Appendix: Not visualized, there are no secondary signs seen to suggest appendicitis. Peritoneum: No ascites or free air; no fluid collection. Mesentery and Retroperitoneum: No enlarged mesenteric or retroperitoneal lymph nodes. Abdominal Wall: There is mild stranding seen within the region of the right inguinal canal. This could be related to prior hernia repair. Pelvis: Reproductive Organs: Evidence of hysterectomy. Bladder: within normal limits. Bones: There is severe right hip osteoarthritis with flattening of the humeral head and large subchondral cystic changes as well as subchondral sclerosis and severe joint space narrowing present. There is also prominent capsular distention involving the right hip. Postoperative changes lower lumbar spine are present. Degenerative change are also seen in the spine with right convex scoliosis lumbar spine. IMPRESSION: 1. No acute findings in the abdomen or pelvis. 2. Severe right hip osteoarthritis with joint effusion/prominent capsular distention right hip. 3. Interval enlargement of a large left renal cyst with overall stable complex peripherally calcified cystic lesion midportion left kidney. 4. Bibasilar pulmonary nodules which were seen on prior studies. 5. Additional findings as described above. Chest x-ray Status: image reviewed by me, report reviewed by me Additional Comment: IMPRESSION: Atherosclerosis. No acute cardiopulmonary process. Hospitalist H&P A/P - Plan Plan: Near syncope Echo ordered Continue to monitor on telemetry Obtain orthostatic vitals Chest pain Continue to trend troponins Stress test ordered Hypertension Continue home medications Monitor every 4 hours As needed antihypertensives available Chronic pain As needed analgesics available, will continue which she takes at home CODE STATUS: Full Surrogate decision-maker would be a family friend, [facility] [phone]
[2020-04-26 11:59] LABS: Troponin I Less than 0.010 ng/mL (< 0.028)
[2020-04-26] MEDS ORDERED: HYDROcodone/Acetaminophen 5/325 mg Tablet ONE (13:03)
[2020-04-26] MEDS ORDERED: Aspirin Chewable 81 MG TAB ONE (15:21)
[2020-04-26 17:26] VITALS: BMI 20.9
[2020-04-26 17:53] LABS: Troponin I 0.011 ng/mL (< 0.028)
[2020-04-26] MEDS ORDERED: hydrALAZINE 20 MG/ML VIAL SLOW IVP PRN (18:14)
[2020-04-26 18:21] LABS: SARS-CoV-2 MS2 Positive; SARS-CoV-2 N Gene Negative; SARS-CoV-2 S Gene Negative; SARS-CoV-2 by NAA Not Detected (NotDetected); SARS-CoV-2 orf1ab Negative
[2020-04-26] MEDS: Atorvastatin Calcium 10 MG TAB PO SCH (20:27)
[2020-04-26] MEDS: Metoprolol Tartrate 50 MG TAB PO SCH (20:27)
[2020-04-26] MEDS ORDERED: ALPRAZolam 1 MG TAB PO SCH (22:15)
[2020-04-26] MEDS: HYDROcodone/Acetaminophen 5/325 mg Tablet PO PRN (22:39)
[2020-04-27] MEDS: HYDROcodone/Acetaminophen 5/325 mg Tablet PO PRN ×4 (00:40→18:07)
[2020-04-27] MEDS: Thyroid 30 MG TAB PO SCH (05:36)
[2020-04-27] MEDS ORDERED: Aspirin Chewable 81 MG TAB PO SCH (09:00)
[2020-04-27] MEDS ORDERED: ADENOSINE 60 MG/20 ML VIAL ONE (09:02)
--- NOTE | 2020-04-27 10:06 | PDOC.HOSPP ---
- Subjective Encounter Date: 04/27/20 Encounter Time: 10:04 Subjective: Patient complaining of pain in left hip which she states is chronic. She takes hydrocodone at home and this was given 5 hours ago. She also reports feeling anxious about not eating. She has been fasting for stress test and it has not been done yet this morning. Otherwise she feels well. Has not had any lightheadedness or dizziness. Reports discomfort to left side of posterior chest, no central chest pain or palpitations. Denies any sob. Reports mild lower abdominal discomfort which she states is chronic and radiating from right hip pain (awaiting right hip replacement) but denies any dysuria, hesitancy, urgency or hematuria. Feels she is emptying her bladder fully. - Objective Vital Signs & Weight: Vital Signs (12 hours) Temp Pulse Resp BP Pulse Ox 04/27/20 07:35 97.7 F 70 18 191/79 H 98 04/27/20 05:36 97.9 F 74 16 180/77 H 96 Weight Weight 120 lb I&O: 04/26/20 04/27/20 04/28/20 06:59 06:59 06:59 Intake Total 120 Output Total 700 Balance -580 Result Diagrams: 04/27/20 10:17 04/27/20 10:17 Hospitalist ROS - Review of Systems Constitutional: denies: fever, chills, sweats, weakness, malaise, other Eyes: denies: pain, vision change, conjunctivae inflammation, eyelid inflammation, redness, other ENT: denies: ear pain, ear discharge, nose pain, nose discharge, nose congestion, mouth pain, mouth swelling, throat pain, throat swelling, other Respiratory: denies: cough, dry, shortness of breath, hemoptysis, SOB with excertion, pleuritic pain, sputum, wheezing, other Cardiovascular: denies: chest pain, palpitations, orthopnea, paroxysmal noc. dyspnea, edema, light headedness, other Gastrointestinal: reports: abdominal pain (lower abdomen radiating from right hip per patient). denies: nausea, vomiting, diarrhea, constipation, melena, hematochezia, other Genitourinary: denies: dysuria, frequency, incontinence, hematuria, retention, other Musculoskeletal: reports: other (right hip/lower back pain). denies: neck pain, shoulder pain, arm pain, back pain, hand pain, leg pain, foot pain Skin: denies: rash, lesions, lacy, bruising, other Neurological: denies: weakness, numbness, incoordination, change in speech, confusion, seizures, other - Medication Medications: Active Medications Generic Name Dose Route Start Last Admin Trade Name Freq PRN Reason Stop Dose Admin Hydrocodone Bitart/Acetaminophen 1 tab 04/26/20 12:57 04/27/20 05:43 Hydrocodone/Acetaminophen 5/325 Mg Tablet PO 1 tab Q4H PRN Administration Pain Atorvastatin Calcium 10 mg 04/26/20 21:00 04/26/20 20:27 Atorvastatin Calcium 10 Mg Tab PO 10 mg HS MATTHEW Administration Metoprolol Tartrate 50 mg 04/26/20 21:00 04/26/20 20:27 Metoprolol Tartrate 50 Mg Tab PO 50 mg BID MATTHEW Administration Thyroid 30 mg 04/27/20 06:00 04/27/20 05:36 Thyroid 30 Mg Tab PO 30 mg 0600 AMTTHEW Administration - Exam General Appearance: NAD, awake alert Eye: PERRL, anicteric sclera ENT: normocephalic atraumatic, no oropharyngeal lesions Neck: supple, no lymphadenopathy Heart: RRR, no murmur, no gallops, no rubs Respiratory: CTAB, no wheezes, no rales, no ronchi, normal chest expansion Gastrointestinal: soft, non-tender, non-distended, normal bowel sounds Extremities: no edema Skin: normal turgor, no lesions, no rashes Neurological: cranial nerve grossly intact, normal sensation to touch Musculoskeletal: normal tone, normal strength, no muscle wasting Psychiatric: normal affect, normal behavior, A&O x 3 Hosp A/P (1) Near syncope Status: Acute Plan: Awaiting Echo No further episodes Orthostatic BPs (2) Chest pain Code(s): R07.9 - CHEST PAIN, UNSPECIFIED Status: Resolved Plan: Troponins negative x 3 Awaiting stress test Repeat labs including Mg+, BNP and D-Dimer Continue cardiac monitoring (3) Hypertension Code(s): I10 - ESSENTIAL (PRIMARY) HYPERTENSION Status: Chronic Plan: Monitor BP Continue anti-hypertensives Patient anxious, likely driving up BP If maintains elevated consider adding low dose amlodipine. (4) Right hip pain Code(s): M25.551 - PAIN IN RIGHT HIP Status: Chronic Plan: Continue [place] - Plan out of bed/ambulate, DVT proph w/SCDs, GI proph Discharge pending above work-up
[2020-04-27 10:38] LABS: #Basophils 0.1 thou/uL (0.0-0.2); #Eosinphils 0.4 thou/uL (0.0-0.7); #Lymphocytes 1.2 thou/uL (1.20-3.40); #Monocytes 0.5 thou/uL (0.11-0.59); #Neutrophils 3.3 thou/uL (1.40-6.50); %Basophils 0.9 % (0.0-1.0); %Lymphocytes 21.5 % (21.0-51.0); %Monocytes 9.2 % (0.0-10.0); %Neutrophils 60.4 % (42.0-75.0); Hemoglobin 13.1 g/dL (12.0-16.0); Mean Corpuscular HGB CONC 32.8 g/dL (32.0-36.0); Mean Corpuscular Hemoglobin 30.4 pg (27.0-31.0); Mean Corpuscular Volume 92.6 fL (78.0-98.0); Mean Platelet Volume 6.9 fL (7.4-10.4); Platelet Count 213 thou/uL (130-400); RBC Distribution Width 12.2 % (11.5-14.5); Red Blood Cell (RBC) Count 4.33 mill/uL (4.20-5.40); White Blood Cell (WBC) Count 5.4 thou/uL (4.8-10.8)
[2020-04-27 10:53] LABS: ALT (SGPT) 10 U/L (8-55); AST (SGOT) 20 U/L (5-34); Albumin 3.8 g/dL (3.4-4.8); Alkaline Phosphatase 72 U/L (40-110); Anion Gap 9 mmol/L (10-20); BUN (Urea Nitrogen) 16 mg/dL (9.8-20.1); Bilirubin, Total 0.4 mg/dL (0.2-1.2); Calc. Creatinine Clearance 43 mL/min (70-130); Calcium 10.3 mg/dL (7.8-10.44); Carbon Dioxide 32 mmol/L (23-31); Chloride 103 mmol/L (98-107); Globulin 3.6 g/dL (2.4-3.5); Glucose 99 mg/dL (83-110); Magnesium 1.9 mg/dL (1.6-2.6); Potassium 4.5 mmol/L (3.5-5.1); Protein, Total 7.4 g/dL (6.0-8.3); Sodium 139 mmol/L (136-145)
[2020-04-27] MEDS ORDERED: Iopamidol-370 76% 500 ML 1 ML ONE (11:31)
[2020-04-27] MEDS: Metoprolol Tartrate 50 MG TAB PO SCH ×2 (12:05→20:47)
--- NOTE | 2020-04-27 13:14 | NM ---
CARDIAC SPECT: CLINICAL HISTORY: 84-year-old female with chest pain, hypertension, dyslipidemia. TECHNIQUE: A myocardial perfusion scan was performed using the single isotope two day protocol with 27 mCi techn etium-99m sestamibi injected intravenously for both stress and rest images. Pharmacologic stress with Adenosine was monitored and interpreted by Josh Boston NP. FINDINGS: Fairly homogeneous tracer distribution is seen in the myocardial segments on stress and rest images w ithout fixed or reversible defects. GATED SPECT LVEF: 80%. WALL MOTION EXAM: Normal. IMPRESSION: Normal myocardial perfusion scan. POS: [facility]
[2020-04-27] MEDS: Docusate 100 MG CAP PO SCH (18:07)
[2020-04-27] MEDS: Aspirin 81 mg Enteric Coated Tablet PO SCH (18:07)
[2020-04-27] MEDS: Famotidine 20 MG TAB PO SCH (20:47)
[2020-04-27] MEDS: Atorvastatin Calcium 10 MG TAB PO SCH (20:47)
[2020-04-27] MEDS ORDERED: Famotidine 20 MG TAB PO SCH (21:00)
[2020-04-27] MEDS: ALPRAZolam 1 MG TAB PO SCH (22:05)
[2020-04-28] MEDS: HYDROcodone/Acetaminophen 5/325 mg Tablet PO PRN ×4 (00:32→20:12)
[2020-04-28] MEDS: Thyroid 30 MG TAB PO SCH (05:48)
[2020-04-28] MEDS: Labetalol HCl 100 MG/20 ML VIAL SLOW IVP PRN ×2 (06:43→23:40)
[2020-04-28] MEDS: Docusate 100 MG CAP PO SCH (08:58)
[2020-04-28] MEDS: Aspirin 81 mg Enteric Coated Tablet PO SCH (08:58)
[2020-04-28] MEDS: Metoprolol Tartrate 50 MG TAB PO SCH ×2 (08:58→20:11)
[2020-04-28] MEDS ORDERED: Amlodipine 10 MG TAB PO SCH (12:15)
--- NOTE | 2020-04-28 13:22 | PDOC.DS.DS ---
Provider - Provider Date of Admission: 04/28/20 11:12 Admitting Provider: Franco Barnes DO Primary Care Physician: Alexsander Klein Jr, MD Course - Hospital Course Hospital Course: 84-year-old female presented with Pre syncope -Sinus rhythm echo showed EF of 70% and diastolic dysfunction. Stress test negative. (2) Chest pain Code(s): R07.9 - CHEST PAIN, UNSPECIFIED Status: Resolved Plan: Troponins negative x 3 (3) Hypertension Code(s): I10 - ESSENTIAL (PRIMARY) HYPERTENSION Status: Chronic It seems she has underlying suboptimally controlled blood pressure. Norvasc added. (4) Right hip pain Code(s): M25.551 - PAIN IN RIGHT HIP Status: Chronic Plan: Continue Lovely She is quite anxious to go home. Discussed about following with the blood pressure.At home she does have a blood pressure cuff. Also adding Norvasc to her regimen. Her latest blood pressure seems to be going up. If it improved, that is systolic blood pressure less than 160, then possible discharge home today with close follow-up with the primary care physician. Resuscitation Status: 04/26/20 13:01 Resuscitation Status Routine Co-Sign Provider: Resuscitation Status: FULL: Full Resuscitation Discussed with: pt - Labs Lab Results: 04/27/20 10:17 04/27/20 10:17 Abnormal Lab Results - Last 48 hrs 04/27/20 10:17: Carbon Dioxide 32 H, Anion Gap 9 L, Globulin 3.6 H, Albumin/Globulin Ratio 1.1 L 04/27/20 10:17: MPV 6.9 L 04/27/20 10:29: D-Dimer 1.39 H - Physical Exam Vitals: Vital Signs (12 hours) Temp Pulse Resp BP BP BP BP 04/28/20 11:30 97.4 F L 68 18 201/84 H 04/28/20 07:34 97.9 F 73 16 151/68 H 04/28/20 06:43 72 04/28/20 05:00 97.4 F L 80 18 204/85 H 185/88 H 204/87 H Pulse Ox 04/28/20 11:30 98 04/28/20 07:34 96 04/28/20 06:43 04/28/20 05:00 97 Weight Weight 118 lb 5 oz Physical Exam: The patient was seen and examined on the day of discharge. Patient is resting. She is quite anxious to go home. Discussed about following with the blood pressure.At home she does have a blood pressure cuff. Also adding Norvasc to her regimen. Her latest blood pressure seems to be going up. If it improved then possible discharge home today with close follow- up with the primary care physician. Plan - Discharge Medications Prescriptions: amLODIPine Besylate [Norvasc] 5 mg PO BID 30 Days #60 tablet Home Medications: Medication Instructions Recorded Confirmed Type ALPRAZolam [Alprazolam] 2 mg PO HS 12/15/14 04/26/20 History Metoprolol Tartrate [Lopressor] 1 tab PO BID 08/31/18 04/26/20 History Aspirin [Ecotrin Low Strength] 81 mg PO DAILY 04/26/20 04/26/20 History Docusate [Colace] 100 mg PO DAILY 04/26/20 04/26/20 History HYDROcodone/Acetaminophen [Lovely 0.5 each PO QID 04/26/20 04/26/20 History 7.5-325 Tablet] Simvastatin [Zocor] 20 mg PO HS 04/26/20 04/26/20 History Thyroid,Pork [[place] Thyroid] 30 mg PO DAILY 04/26/20 04/26/20 History amLODIPine Besylate [Norvasc] 5 mg PO BID 30 Days #60 tablet 04/28/20 Rx Allergies: morphine Allergy (Verified 04/26/20 17:55) Rash Sulfa (Sulfonamide Antibiotics) Allergy (Verified 04/26/20 17:55) Nausea codeine Adverse Reaction (Mild, Verified 04/26/20 17:55) Nausea zolpidem tartrate [From Ambien] Adverse Reaction (Mild, Verified 04/26/20 17:55) BAD DREAMS ciprofloxacin HCl [From Cipro] Adverse Reaction (Verified 04/26/20 17:55) Nausea - Discharge Instructions Discharge Instructions:: Follow-up with the PCP in 1 week please check your blood pressure daily and take the readings with you when you visit primary care clinic FOCUS: Transition from Acute Care after Discharge GOAL: Successful transition to care in the community YOUR TASKS: (1) review all information outlined in your discharge packet (2) follow any instructions outlined in your discharge packet (3) contact your primary care provider if you have questions or need additional assistance See patient discharge instruction sheet for detailed teaching. Patient verbalizes understanding of medications and is able to verbalize follow-up care. See Discharge Plan for additional discharge information. Patient secured in private vehicle prior to departure. Activity:: Activity as Tolerated Nourishment:: Heart Healthy Diet - Follow up Plan Referrals: Alexsander Klein Jr, MD [Primary Care Provider] - 7 Days ( CALL FOR FOLLOW-UP APPOINTMENT ) Disposition: HOME Quality - Care Measures CORE MEASURES:: N/A
--- NOTE | 2020-04-28 13:29 | PDOC.HOSPP ---
- Subjective Encounter Date: 04/28/20 Encounter Time: 11:00 Subjective: Patient is quite anxious to go home however I need to have a difficult change of plan as systolic blood pressure is 180 needs better control prior to go home. - Objective Vital Signs & Weight: Vital Signs (12 hours) Temp Pulse Resp BP BP BP BP 04/28/20 11:30 97.4 F L 68 18 201/84 H 04/28/20 07:34 97.9 F 73 16 151/68 H 04/28/20 06:43 72 04/28/20 05:00 97.4 F L 80 18 204/85 H 185/88 H 204/87 H Pulse Ox 04/28/20 11:30 98 04/28/20 07:34 96 04/28/20 06:43 04/28/20 05:00 97 Weight Weight 118 lb 5 oz I&O: 04/27/20 04/28/20 04/29/20 06:59 06:59 06:59 Intake Total 120 720 Output Total 700 1300 Balance -580 -580 Result Diagrams: 04/27/20 10:17 04/27/20 10:17 Hospitalist ROS - Medication Medications: Active Medications Generic Name Dose Route Start Last Admin Trade Name Freq PRN Reason Stop Dose Admin Hydrocodone Bitart/Acetaminophen 1 tab 04/26/20 12:57 04/28/20 11:27 Hydrocodone/Acetaminophen 5/325 Mg Tablet PO 1 tab Q4H PRN Administration Pain Alprazolam 2 mg 04/27/20 21:00 04/27/20 22:05 Alprazolam 1 Mg Tab PO 2 mg HS MATTHEW Administration Amlodipine Besylate 10 mg 04/28/20 12:15 04/28/20 12:15 Amlodipine 10 Mg Tab PO 04/28/20 14:15 10 mg 1215 MATTHEW Administration Aspirin 81 mg 04/27/20 09:00 04/28/20 08:58 Aspirin 81 Mg Enteric Coated Tablet PO 81 mg DAILY MATTHEW Administration Atorvastatin Calcium 10 mg 04/26/20 21:00 04/27/20 20:47 Atorvastatin Calcium 10 Mg Tab PO 10 mg HS MATTHEW Administration Docusate Sodium 100 mg 04/27/20 09:00 04/28/20 08:58 Docusate 100 Mg Cap PO 100 mg DAILY MATTHEW Administration Famotidine 20 mg 04/27/20 21:00 04/27/20 20:47 Famotidine 20 Mg Tab PO 20 mg HS MATTHEW Administration Hydralazine HCl 10 mg 04/26/20 18:14 04/27/20 10:01 Hydralazine 20 Mg/Ml Vial SLOW IVP 10 mg Q4H PRN Administration SBP > 180 and HR < 70 Labetalol HCl 20 mg 04/26/20 18:14 04/28/20 06:43 Labetalol Hcl 100 Mg/20 Ml Vial SLOW IVP 20 mg Q4H PRN Administration SBP > 180 and HR >/= 70 Metoprolol Tartrate 50 mg 04/26/20 21:00 04/28/20 08:58 Metoprolol Tartrate 50 Mg Tab PO 50 mg BID MATTHEW Administration Thyroid 30 mg 04/27/20 06:00 04/28/20 05:48 Thyroid 30 Mg Tab PO 30 mg 0600 MATTHEW Administration - Exam General Appearance: NAD, awake alert Eye: PERRL ENT: normocephalic atraumatic Neck: supple Heart: RRR Respiratory: CTAB, normal chest expansion Gastrointestinal: soft, normal bowel sounds Psychiatric: normal affect, normal behavior, A&O x 3 Hosp A/P - Plan 84-year-old female presented with Pre syncope -Sinus rhythm echo showed EF of 70% and diastolic dysfunction. Stress test negative. (2) Chest pain Code(s): R07.9 - CHEST PAIN, UNSPECIFIED Status: Resolved Plan: Troponins negative x 3 (3) Hypertension Code(s): I10 - ESSENTIAL (PRIMARY) HYPERTENSION Status: Chronic It seems she has underlying suboptimally controlled blood pressure. Norvasc added. (4) Right hip pain Code(s): M25.551 - PAIN IN RIGHT HIP Status: Chronic Plan: Continue [place] She is quite anxious to go home. Discussed about following with the blood pressure.At home she does have a blood pressure cuff. Also adding Norvasc to her regimen. Her latest blood pressure seems to be going up. If it improved, that is systolic blood pressure less than 160, then possible discharge home today with close follow-up with the primary care phys drew. Plan changed-as her blood pressure still in the high end closer to 180 systolic. -will try adding hydralazine p.o. and monitor for another day.
[2020-04-28] MEDS ORDERED: hydrALAZINE 25 MG TAB PO SCH (13:30)
[2020-04-28] MEDS: hydrALAZINE 25 MG TAB PO SCH ×2 (16:58→20:11)
[2020-04-28] MEDS ORDERED: hydrALAZINE 10 MG TAB PO SCH (17:00)
[2020-04-28] MEDS: Famotidine 20 MG TAB PO SCH (20:10)
[2020-04-28] MEDS: Atorvastatin Calcium 10 MG TAB PO SCH (20:10)
[2020-04-28] MEDS: ALPRAZolam 1 MG TAB PO SCH (22:15)
[2020-04-28] MEDS ORDERED: Acetaminophen 325 MG TAB PO SCH (22:45)
[2020-04-29] MEDS: HYDROcodone/Acetaminophen 5/325 mg Tablet PO PRN (04:29)
[2020-04-29] MEDS: Thyroid 30 MG TAB PO SCH (05:58)
[2020-04-29 07:36] VITALS: TEMP 97.6
[2020-04-29] MEDS: Metoprolol Tartrate 50 MG TAB PO SCH (09:03)
[2020-04-29] MEDS: Docusate 100 MG CAP PO SCH (09:03)
[2020-04-29] MEDS: hydrALAZINE 25 MG TAB PO SCH (09:03)
[2020-04-29] MEDS: Aspirin 81 mg Enteric Coated Tablet PO SCH (09:03)
--- NOTE | 2020-04-29 10:56 | PDOC.BPN ---
- Brief Progress Note Encounter Date: 04/29/20 Encounter Time: 10:52 THe patient still reports some dizziness while wlaking, but states it is from a blood flow restriction from her severe hip osteoarthritis. Per nurse, she refused cTA. The patient denies cough or chest pain or SOB. Orthostatics negative. She states her BP is normally 160 at home and that is when she feels not dizzy. SHe states amlodipine makes her more dizzy and she stopped taking it at home. Physical exam: repeat BP 144/66 GEn: alert, awake, oriented times three CV: RRR, no murmurs, rubs, gallops Lungs: CTAB Abdomen: +BS, soft, nontender, nondistended Ext: no edema. Decreased strength right leg Neuro: CN II-XII intact. No sensation, loss of motor strength in extremities Plan: #Dizziness #Hypertensive urgency - orthostatics negative. Dizziness could be related to blood flow restriction per patient from severe hip arthritis which she is planning on having replaced in May . - stable for dc, advise patient to not take amlodipine if she does not feel comfortable, but take hydralazin 25 mg tid if BP > 150-160. She understands plan and does not want me to call her daughter to explain this to her #Left kidney cyst - patient is aware of this and this has been there for years #Bilateral pulm nodules - patient is aware of this already
[2020-04-29 11:33] VITALS: BP 144/66
--- NOTE | 2020-04-29 15:39 | EKG ---
Test Reason : Blood Pressure : / mmHG Vent. Rate : 098 BPM Atrial Rate : 098 BPM P-R Int : 162 ms QRS Dur : 086 ms QT Int : 364 ms P-R-T Axes : 029 -43 058 degrees QTc Int : 464 ms Normal sinus rhythm Left axis deviation RSR' or QR pattern in V1 suggests right ventricular conduction delay ST abnormality, possible digitalis effect Abnormal ECG Confirmed by KENDRA VITALE DO ([id number]), graphics editor YOVANY OSMAN ([id number]) on 04/29/2020 3:39:04 PM Referred By: Confirmed By:KENDRA VITALE DO
--- NOTE | 2020-05-02 22:14 | PQF ---
CLINICAL DOCUMENTATION CLARIFICATION FORM: Dear : Felipa Santamaria MD Date / Time: 05/02/2020 Please exercise your independent, professional judgment in responding to the clarification form. Clinical indicators are provided on the bottom of this form for your review Please check appropriate box(es): to clarify the etiology of chest pain [ ] Chest pain due to hypertensive urgency [ x ] Chest pain due to anxiety [ ] Other diagnosis (Please specify if any) [ ] Unable to determine Physician Signature: Date/Time: For continuity of documentation, please document condition throughout progress notes and discharge summary. Thank You. To be completed by CDI/Coding staff for physician review: Present Clinical Indicators - Signs / Symptoms / Labs Results and Location in Medical Record [x] Patient did have some intermittent chest pain yesterday H&P on 04/26 [x] Midsternal pressure that resolved on its own H&P on 04/26 [x] Patient anxious, likely driving up BP Hospitalist PN on 04/27 [x] Hypertensive urgency Progress notes on 04/29 [x] She is quite anxious to go home. Hospitalist PN on 04/28 Present Risk Factors Results and Location in Medical Record [x] Aged person 84yrs H&P on 04/26 [ ] Present Treatments Results and Location in Medical Record [x] Placed back on cardiac monitoring Emergency room visit on 04/26 [x] Apresoline 10 mg IV Medication from 04/26 to 04/29 [x] Labetalol 20mg IV Medication from 04/26 to 04/29 [x] Xanax 2 mg PO Medication from 04/27 to 04/29 CDS/Marketing Engineer Signature: AAS Phone #: Date/Time: 05/02/2020 This is a permanent part of the Medical Record [facility]
== END 2020-04-29 11:42 | disposition home or self-care (01) | DRG 880 ==
LOC: SUATTDRO 07:48 → ERS 07:48 → ERHOLD 11:14 → 2NO 16:57 → OBSVTOIN 04-28 11:12
PROVIDERS: ADMIT Family Medicine; ATTEND Internal Medicine
DX: F41.9 Anxiety disorder, unspecified (principal); R07.9 Chest pain, unspecified; M16.11 Unilateral primary osteoarthritis, right hip; R55 Syncope and collapse; E78.00 Pure hypercholesterolemia, unspecified; I16.0 Hypertensive urgency; E03.9 Hypothyroidism, unspecified; Z90.710 Acquired absence of both cervix and uterus; I10 Essential (primary) hypertension; G89.29 Other chronic pain; Z88.1 Allergy status to other antibiotic agents; Z88.8 Allergy status to other drugs, medicaments and biological substances; Z88.2 Allergy status to sulfonamides; Z88.6 Allergy status to analgesic agent; Z79.899 Other long term (current) drug therapy; Z79.01 Long term (current) use of anticoagulants; N28.1 Cyst of kidney, acquired
CPT/HCPCS: 36415; 36416; 51701; 71045; 74177; 78452; 80053; 80061; 81003; 82550; 83690; 83735; 83880; 84443; 84484; 85025; 85379; 87635; 93005; 93017; 93306; 94760; 96374; 96375; 96376; A9500; G0378; J0153; J0360; J2405; Q9967; U0003